=== PATIENT | male | born 1965 | race Hispanic/Latino ===

== ENCOUNTER → 2024-06-17 | Day surgery (SDC) | payer OTHER ==
[2024-06-14 14:53] LABS: BASOPHILS % 0.4 % (0.0-1.0); EOSINOPHILS # (AUTO) 0.1 (0.0-0.4); EOSINOPHILS % 1.3 % (0.0-6.0); HEMATOCRIT 41.5 % (38.2-49.6); HEMOGLOBIN 14.1 g/dL (14.0-18.0); LYMPHOCYTES # (AUTO) 2.1 (1.0-3.2); LYMPHOCYTES % 23.2 % (18.0-39.1); MEAN CORPUSCULAR HEMOGLOBIN 31.1 pg (28-32); MEAN CORPUSCULAR VOLUME 91.4 fL (81-99); MONOCYTES # (AUTO) 0.8 (0.2-0.8); MONOCYTES % 8.5 % (4.4-11.3); NEUTROPHILS # (AUTO) 5.9 (2.1-6.9); NEUTROPHILS % 66.4 % (38.7-80.0); PLATELET COUNT 276 x10e3/uL (140-360); RED BLOOD COUNT 4.54 x10e6/uL (4.3-5.7); RED CELL DISTRIBUTION WIDTH 12.4 % (11.7-14.4); WHITE BLOOD COUNT 8.94 x10e3/uL (4.8-10.8)
[2024-06-14 15:11] LABS: ANION GAP 13.1 mmol/L (8-16); CALCIUM 9.7 mg/dL (8.4-10.2); CREATININE, SERUM 0.86 mg/dL (0.72-1.25); POTASSIUM 4.1 mmol/L (3.5-5.1); URIC ACID 3.4 mg/dL (4.8-8.0)
[~2024-06-17] MED LIST: AMLODIPINE BESYL5 MG PO; DEXAMETHASONE SOD PHOS INJ 4 MG/ML SDV ONE; EPHEDRINE SULFATE INJ 50 MG/ML VIAL ONE; FAMOTIDINE 20 MG/2 ML VIAL IV ONE; FENTANYL CITRATE/PF 100MCG/2 ML INJ ONE; LEVOTHYROXINE75 MCG PO; LEXAPRO10 MG PO; LIDOCAINE HCL 2% LOCAL INJ 5 ML SDV VIAL INJ ONE; LIPITOR20 MG PO; MYSOLINE50 MG PO; ONDANSETRON HCL INJ 2MG/ML 2ML 2 MG/ML VIAL ONE; PHENYLEPHRINE HCL 1% 10 MG/ML VIAL ONE; PROPOFOL IV EMULSION 10 MG/ML 20 ML VIAL ONE; SUCCINYLCHOLINE CHLORIDE 20 MG/ML 10ML VIAL ONE; ZESTRIL40 MG PO
[2024-06-17] MEDS: LEVOFLOXACIN 500MG/D5W 100ML 100 ML IV ONE (05:54)
[2024-06-17] MEDS: GENTAMICIN 80MG/NS 100 ML 200 ML IV ONE (05:54)
[2024-06-17] MEDS: LACTATED RINGER'S 1,000 ML ONE (05:55)
[2024-06-17 07:53] VITALS: TEMP 98.3
[2024-06-17] MEDS: PHENAZOPYRIDINE HCL 100 MG TAB ONE (08:21)
[2024-06-17 08:40] VITALS: BP 151/87; PULSE 97; RESP 18; O2SAT 99
== END | disposition home or self-care (01) ==
LOC: OR 05:20
PROVIDERS: ATTEND Urology
DX: Z46.6 Encounter for fitting and adjustment of urinary device (principal); N20.0 Calculus of kidney; N20.1 Calculus of ureter; N13.30 Unspecified hydronephrosis; N35.812 Other bulbous urethral stricture, male; N35.819 Other urethral stricture, male, unspecified site; N40.0 Benign prostatic hyperplasia without lower urinary tract symptoms; N32.89 Other specified disorders of bladder; N28.89 Other specified disorders of kidney and ureter; I10 Essential (primary) hypertension; E03.9 Hypothyroidism, unspecified; F41.9 Anxiety disorder, unspecified; Z01.810 Encounter for preprocedural cardiovascular examination; Z01.812 Encounter for preprocedural laboratory examination; Z01.818 Encounter for other preprocedural examination; Z79.899 Other long term (current) drug therapy; Z84.1 Family history of disorders of kidney and ureter; Z80.42 Family history of malignant neoplasm of prostate
CPT/HCPCS: 36415; 52351; 74018; 74420; 80048; 84550; 85025; 93005; C1769; J0330; J1100; J1580; J1956; J2003; J2371; J2405; J2704; J3010; J7121